=== PATIENT | female | born 1980 | race Caucasian/White ===

== ENCOUNTER 2018-10-08 09:34 | Day surgery (SDC) | payer OTHER ==
[2018-10-07 15:50] VITALS: Ht 157.5 cm; Wt 82.0 kg
[2018-10-08] VITALS (16 sets, daily range): BP systolic 104–118; BP diastolic 70–77; PULSE 68–97; RESP 11–19
[~2018-10-08] VITALS: Ht 157.5 cm; Wt 82.0 kg
[~2018-10-08 09:34] MED LIST: ACETAMINOPHEN 500 MG TAB PO ONE; CEFAZOLIN 2 GM/50 ML (PMX) 50 ML IVPB SCH; FERR325C PO; FOLI-49 PO; LIDOCAINE 2% (SDV) 5 ML INJ ONE; PREN1TAB62 PO
[2018-10-08] MEDS ORDERED: ESCI10TA48 PO (10:08)
[2018-10-08] MEDS ORDERED: PANT40TA4 PO (10:08)
--- NOTE | 2018-10-08 10:51 | HPN ---
Date/Time of Note Date/Time of Note DATE: 10/08/18 TIME: 10:51 Interval H&P Admission Note Pt. seen H&P reviewed: No system changes RAJI AGUILAR DPM Oct 08, 2018 10:51
[2018-10-08] MEDS ORDERED: POLYMYXIN/BACITRACIN 1L IRRIG ONE (10:56)
[2018-10-08] MEDS ORDERED: LIDOCAINE 2% (MDV) 20 ML INJ ONE (10:56)
[2018-10-08] MEDS ORDERED: BUPIVACAINE 0.5% (SDV) 30 ML INJ ONE ×2 (10:56→12:24)
--- NOTE | 2018-10-08 11:10 | PREAC ---
Date/Time of Note Date/Time of Note DATE: 10/08/18 TIME: 11:07 Anesthesia Eval and Record Evaluation Time Pre-Procedure Interview DATE: 10/08/18 TIME: 11:07 Age 38 Sex female NPO: 8 hrs Preoperative diagnosis L foot bunion Planned procedure surgical correction of L foot bunion deformity Past Medical History Past Medical History: Includes GI: GERD (under control w/ medication), Obesity Psych: Depression Surgery & Anesthesia Issues No known issue Meds Anticoagulation: No Beta Brittany within 24 hr: No Reason Beta Brittany not given: Pt. not on B-Brittany Reported Medications Escitalopram Oxalate* (Escitalopram Oxalate*) 10 Mg Tablet, 10 MG PO DAILY, #30 TAB 10/08/18 Pantoprazole* (Pantoprazole*) 40 Mg Tablet.dr, 40 MG PO AC BREAKFAST, TAB 10/08/18 Discontinued Reported Medications Folic Acid* (Folic Acid*) 1 Mg Tablet, 1 MG PO DAILY, TAB 07/01/16 Ferrous Sulfate (Iron) 325 Mg Capsule.er, 325 MG PO, CAP 07/01/16 Vit-Iron Fumarate-FA ( Vitamin Tablet) 1 Each Tablet, 1 TAB PO DAILY, TAB 07/01/16 Current Medications Cefazolin Sodium/ Dextrose 50 ml @ 100 mls/hr PRE-OP IVPB ; Start 10/08/18 at 09:00; Stop 10/08/18 at 19:00 Meds reviewed: Yes Allergies Coded Allergies: No Known Allergy (Unverified , 10/08/18) Allergies Reviewed: Yes Labs/Studies Labs Reviewed: Reviewed by anesthesiologist test: Negative Pre-procedure Exam Last vitals Vital Signs Date Temp Pulse Resp B/P (MAP) Pulse Ox O2 O2 Flow FiO2 Time Delivery Rate 10/08/18 97.9 97 16 118/75 100 Room Air 10:40 (89) Airway: Adequate mouth opening, Adequate thyromental dist Mallampati: Mallampati II Teeth: Normal Lung: Normal Heart: Normal ASA Physical Status ASA physical status: 2 Emergency: None Planned Anesthetic General/MAC: MAC Pre-operative Attestations Prior to commencing anesthesia and surgery, the patient was re-evaluated, there was verification of: *The patient's identity *The results of appropriate recent lab work and preoperative vital signs *The above evaluation not changing prior to induction *Anesthetic plan, risk benefits, alternative and complications discussed with patient/family; questions answered; patient/family understands, accepts and wishes to proceed. JOSÉ ANTONIO MORGAN Oct 08, 2018 11:09
[2018-10-08] MEDS ORDERED: PROPOFOL 40 ML ONE (11:18)
[2018-10-08] MEDS ORDERED: CEFAZOLIN 1 GM INJ ONE (11:18)
[2018-10-08] MEDS ORDERED: MIDAZOLAM 1 MG/ML 2 ML INJ ONE (11:18)
[2018-10-08] MEDS ORDERED: FENTAnyl 50 MCG/ML VIAL ONE (11:18)
[2018-10-08] MEDS ORDERED: FENTAnyl 50 MCG/ML VIAL IV PRN ×2 (11:30)
[2018-10-08] MEDS ORDERED: DIPHENHYDRAMINE 50 MG INJ IV PRN (11:30)
[2018-10-08] MEDS ORDERED: OXYCODONE/ACETAMINOPHEN (5/325) TAB PO PRN ×2 (11:30)
[2018-10-08] MEDS ORDERED: ALBUTEROL 0.083% (NEB) 2.5 MG/3 ML AMP HHN PRN (11:30)
[2018-10-08] MEDS ORDERED: LABETALOL HCL 20MG INJ IV PRN (11:30)
[2018-10-08] MEDS ORDERED: ONDANSETRON 4 MG INJ IV PRN (11:30)
[2018-10-08] MEDS ORDERED: MEPERIDINE 25 MG INJ IV PRN (11:30)
[2018-10-08] MEDS ORDERED: morphine (1 MG/ML) 10ML SYRINGE IV PRN ×2 (11:30)
[2018-10-08] MEDS ORDERED: HYDROmorphONE 1 MG/5 ML IV SYRINGE IV PRN ×2 (11:30)
[2018-10-08] MEDS ORDERED: LIDOCAINE 2% (MDV) 20 ML INJ INJ ONE (11:35)
[2018-10-08] MEDS ORDERED: POLYMYXIN/BACITRACIN 1L IRRIG IRR ONE (11:35)
[2018-10-08] MEDS ORDERED: BUPIVACAINE 0.5% 30 ML VIAL INJ ONE (11:35)
[2018-10-08] MEDS ORDERED: PHENYLephrine (100 MCG/ML) 5ML SYG ONE (11:51)
[2018-10-08] MEDS ORDERED: PROPOFOL 20 ML ONE (12:33)
--- NOTE | 2018-10-08 12:46 | PAC ---
Date/Time of Note Date/Time of Note DATE: 10/08/18 TIME: 12:45 Post-Anesthesia Notes Post-Anesthesia Note Last documented vital signs Vital Signs Date Temp Pulse Resp B/P Pulse Ox O2 O2 Flow FiO2 Time (MAP) Delivery Rate 10/08/18 97.9 98.2 97 77 16 18 118/75 100 100 Room 10:40 124 (89) 108 Air RA 0 Activity: WNL Respiratory function: WNL Cardiovascular function: WNL Mental status: Baseline Pain reasonably controlled: Yes Hydration appropriate: Yes Nausea/Vomiting absent: Yes JOSÉ ANTONIO MORGAN Oct 08, 2018 12:46
--- NOTE | 2018-10-08 12:51 | OPR ---
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 Risks and complications of this type of surgery was discussed with patient in great detail. Risks and complications discussed include, but are not limited to, postoperative infection, postoperative pain, chronic pain and disability, hardware failure, malunion, nonunion, delayed union, failure of surgery to correct the problem, need for additional surgical procedures, deep venous thrombosis, gait disturbance, problems with shoegear, limitation of activities, limb loss and loss of life. Patient understands the discussion and agrees to the procedure. An informed consent was obtained, signed and placed in the chart. No guarantee or warrantee was given or implied as to the outcome of the procedure either in verbal or written form. Procedure Description The patient was seen in the preoperative unit. The proposed surgery was discussed with patient in great detail. Risks and complications of this type of surgery was discussed with patient in great detail. Opportunity was given to patient to ask questions and all questions were answered. The patient acknowledges understanding of the discussion. An informed consent was then obtained, signed and placed in the chart. Suture: Left foot bunionectomy Patient was taken to the operating room and was placed on the operating table in the supine position. All bony prominences were padded properly. A timeout was called by the circulating nurse. Everyone in the operating room was agreeable to the timeout. The patient was then placed under general anesthesia by the anesthesiologist. A pneumatic ankle tourniquet was applied to the left ankle. The left lower extremity was scrubbed,l prepped, and draped in the usual aseptic manner. An Esmarch bandage was utilized to exsanguinate the left foot and the ankle tourniquet was inflated to 250 mmHg pressure. Attention was directed to the left foot. A 6 cm linear incision was made medial and parallel to the extensor hallucis longus tendon using a sharp #10 blade. Bleeders were cauterized as necessary. Sharp and blunt dissection was made of the joint capsule with care being taken to identify and protect vital neurovascular structures. The first metatarsal phalangeal joint capsule was identified and a linear capsulotomy was done using a #15 blade. The joint capsule was then sharply dissected at the periosteal level exposing the first metatarsal phalangeal joint. Large bony prominence was found of the dorsal and medial aspect of the first metatarsal head. A McGlamry elevator was inserted into the joints and adhesions were released. Next, a power saw was used to cut the medial bony prominence. A Chevron type osteotomy was made at the head of the first metatarsal bone. The capital fragment was translated laterally to the desired position and a 0.045 K wire was inserted for temporary fixation. I inserted a guidewire for a 3.0 cannulated and headless screw for fixation using lag technique. The remaining medial shelf of bone was cut using a power saw. All rough edges were smoothed using a power rasp. The deformity was corrected at this time. Excellent range of motion of the first metatarsal phalangeal joint was noted. Copious amounts of sterile normal saline was used to irrigate the wound. Next, the joint capsule was closed using 3-0 Vicryl suture; the subcutaneous layer was closed using 4-0 Vicryl and the skin was closed using 5-0 Monocryl in subcuticular stitch pattern. Steri-Strips were applied. Postoperative injection was given, 15 cc of 0.5% Marcaine plain. Sterile dressing was applied to the left foot. The Esmarch was deflated at this time and prompt hyperemic response was noted to the digits of the left foot. The patient tolerated the procedure and anesthesia well. She was transferred to the recovery room with vital signs stable and vascular status intact to the left foot. The patient will be discharged home after postoperative monitoring. Pos toperative orders were written. Prescription for pain medication was electronically submitted to patient's pharmacy. Patient is to follow-up in the office in 1 week. Weightbearing status is partial weightbearing left foot with crutches and a postop shoe. RAJI AGUILAR DPM Oct 08, 2018 12:51
--- NOTE | 2018-10-08 12:51 | SIPON ---
Date/Time of Note Date/Time of Note DATE: 10/08/18 TIME: 12:49 Operative Report Preoperative Diagnosis Left foot bunion deformity Left foot pain Postoperative Diagnosis Left foot bunion deformity Left foot pain Operation/Procedure Performed Surgical correction of left foot bunion deformity Manuel left foot Surgeon see signature line licensed investment sales assistant None Anesthesia: MAC Estimated blood loss: minimal Transfusion Required none Specimen Bone from the left foot. Grafts/Implants none Complications none RAJI AGUILAR DPM Oct 08, 2018 12:51
== END 2018-10-08 14:40 | disposition home or self-care (01) ==
LOC: SDS 09:34
PROVIDERS: ATTEND Podiatrist Foot & Ankle Surgery
DX: M21.612 Bunion of left foot (principal)
CPT/HCPCS: 28296; 73630; 88304; 88311; J0690; J2250; J2405; J3010; L3260; Z7512; Z7610; J2370